=== PATIENT | female | born 1940 | race Caucasian/White ===

== ENCOUNTER 2022-07-13 13:00 | Emergency (ER) | payer MEDICARE, OTHER ==
[~2022-07-13] VITALS: Ht 157.4 cm; Wt 72.6 kg
[2022-07-13] MEDS ORDERED: KENALOG 0.1%80 GM T (14:56)
== END 2022-07-13 15:01 | disposition home or self-care (01) ==
LOC: ED 13:00
DX: L25.9 Unspecified contact dermatitis, unspecified cause (principal); Z88.2 Allergy status to sulfonamides

== ENCOUNTER → 2024-02-24 | Outpatient (CLI) | payer MEDICARE, OTHER ==
[~2024-02-24] MED LIST: AMLODIPINE BESYL5 MG PO; ASPIR-TRIN325 MG PO; CRANBERRY250 MG PO; Ipratropium Brom3 ML NEB; KENALOG 0.1%80 GM T; KRILL OIL500 MG PO; LOSARTAN-HCTZ1 EAC1 PO; METFORMIN HYDR500 MG PO; MUCINEX1200 M1 PO; PREDNISONE10 MG PO; PRESERVISION A1 EAC8 PO; TOPROL XL100 MG PO; VIBRAMYCIN100 MG PO; VITAMIN D-40010 MCG GT
[2024-02-24 09:22] LABS: HEMATOCRIT 45.4 % (37.0-47.0); MEAN CELL VOLUME 92.7 fl (81.0-99.0); MEAN CORPUSCULAR HGB 31.6 pg (27.0-31.0); MEAN CORPUSCULAR HGB CONC 34.1 g/dl (33.0-37.0); MEAN PLATELET VOLUME 9.8 fl (9.6-12.3); PLATELET COUNT AUTOMATED 318 10*3/uL (130-400); WHITE BLOOD COUNT 13.2 10*3/uL (4.8-10.8)
[2024-02-24 09:26] LABS: MANUAL DIFF REFLEX YES
[2024-02-24 09:45] LABS: ALKALINE PHOSPHATASE 151 U/L (46-116); BUN 19 mg/dl (9-23); CHLORIDE 98 mmol/L (98-107); GAMMA GLUTAMYL TRANSPEPTIDASE 30 U/L (0-73); POTASSIUM 3.8 mmol/L (3.4-5.1); SGPT/ALT 17 U/L (5-49); TOTAL PROTEIN 7.4 gm/dL (6.0-8.0)
[2024-02-24 10:20] LABS: ATYPICAL LYMPHS 11 % (0-0); PLATELET SUFFICIENCY NORMAL (NORMAL); TOTAL CELLS COUNTED 100 #CELLS
[2024-02-25 17:06] LABS: A/G RATIO 1.2 (0.7-1.7); ALBUMIN 3.9 g/dL (2.9-4.4); ALPHA-1-GLOBULIN 0.2 g/dL (0.0-0.4); BETA GLOBULIN 1.1 g/dL (0.7-1.3); GAMMA GLOBULIN 0.9 g/dL (0.4-1.8); GLOBULIN, TOTAL 3.2 g/dL (2.2-3.9)
== END | disposition home or self-care (01) ==
LOC: LAB 09:00
PROVIDERS: Student in an Organized Health Care Education/Training Program; ATTEND Family Medicine
DX: E83.52 Hypercalcemia (principal); I10 Essential (primary) hypertension; E11.65 Type 2 diabetes mellitus with hyperglycemia; R74.8 Abnormal levels of other serum enzymes

== ENCOUNTER 2024-03-13 14:02 | Inpatient (IN) | payer MEDICARE, OTHER ==
[~2024-03-13] VITALS: Ht 157.4 cm; Wt 70.4 kg
[2024-03-13 14:04] VITALS: BP 113/52
[2024-03-13] MEDS ORDERED: Ondansetron Hydrochloride 4 MG/2 ML VIAL IV ONE (14:20)
[2024-03-13] MEDS ORDERED: SODIUM CHLORIDE 0.9% 1,000 ML IV ONE ×3 (14:20→21:40)
[2024-03-13 14:47] LABS: VENOUS BLOOD GAS O2 SAT 94.6 % (60.0-85.0)
[2024-03-13 14:48] LABS: BASO % 0.2 % (0.0-1.0); EOS # 0.3 10*3/uL (0.0-0.4); EOS % 1.9 % (1.0-4.0); HEMATOCRIT 46.3 % (37.0-47.0); MEAN CELL VOLUME 94.3 fl (81.0-99.0); MEAN CORPUSCULAR HGB 32.2 pg (27.0-31.0); MEAN CORPUSCULAR HGB CONC 34.1 g/dl (33.0-37.0); MEAN PLATELET VOLUME 9.9 fl (9.6-12.3); MONO # 0.8 10*3/uL (0.1-1.0); NEUT # 13.6 10*3/uL (2.3-7.9); NEUT % 82.5 % (47.0-73.0); PLATELET COUNT AUTOMATED 267 10*3/uL (130-400); RED BLOOD COUNT 4.91 10*6/uL (4.10-5.10); RED CELL DISTRI WIDTH 11.9 % (0-14.5); WHITE BLOOD COUNT 16.5 10*3/uL (4.8-10.8)
[2024-03-13 15:08] LABS: ALKALINE PHOSPHATASE 140 U/L (46-116); BUN 19 mg/dl (9-23); CHLORIDE 101 mmol/L (98-107); POTASSIUM 4.7 mmol/L (3.4-5.1); SGPT/ALT 18 U/L (5-49); TOTAL PROTEIN 7.4 gm/dL (6.0-8.0)
[2024-03-13] MEDS ORDERED: IOHEXOL 300 MG/ML 100 ML VIAL IV ONE (15:30)
[2024-03-13] MEDS ORDERED: Ketorolac Tromethamine 30 MG/ML VIAL IV ONE (16:00)
[2024-03-13 16:10] LABS: BILIRUBIN 1+ (Negative); BLOOD Negative (Negative); CLARITY Turbid (Clear); COLOR Dark Yellow (Yellow); GLUCOSE Negative (Negative); KETONE 1+ (Negative); LEUKO ESTERASE 1+ (Negative); NITRITE Negative (Negative); SPECIFIC GRAVITY >= 1.030 (1.001-1.030)
[2024-03-13 16:22] LABS: BACTERIA 1+; WBC 21-30 wbc/hpf (0-5)
[2024-03-13] MEDS ORDERED: Ceftriaxone Sodium 1 GM/10 ML SYR IV ONE (16:30)
[2024-03-13] MEDS ORDERED: METRONIDAZOLE 100 ML IV ONE (18:00)
[2024-03-13] MEDS ORDERED: ACETAMINOPHEN 650 MG SUPP R PRN (18:30)
[2024-03-13] MEDS ORDERED: MORPHINE Sulfate 2 MG/ML SYR IV PRN (18:30)
[2024-03-13] MEDS ORDERED: Ondansetron Hydrochloride 4 MG/2 ML VIAL IV PRN (18:30)
[2024-03-13] MEDS ORDERED: MAGNESIUM SULFATE 50 ML IV ONE (20:25)
[2024-03-13 21:10] VITALS: BP 125/66
[2024-03-13] MEDS ORDERED: CIPROFLOXACIN 200 ML IV SCH (22:00)
[2024-03-14] VITALS (7 sets, daily range): BP systolic 114–133; BP diastolic 50–62
[2024-03-14] MEDS ORDERED: CIPROFLOXACIN 200 ML IV SCH
[2024-03-14] MEDS ORDERED: DEXTROSE 10 % IN WATER 250 ML IV PRN (00:50)
[2024-03-14] MEDS ORDERED: METRONIDAZOLE 100 ML IV SCH (02:00)
[2024-03-14 06:17] LABS: ALKALINE PHOSPHATASE 88 U/L (46-116); BUN 22 mg/dl (9-23); CHLORIDE 108 mmol/L (98-107); CHOLESTEROL 148 mg/dL (<200); FREE T4 1.16 ng/dl (0.89-1.76); LDL CHOLESTEROL 75 mg/dL (9-159); SGPT/ALT 14 U/L (5-49); TOTAL PROTEIN 5.5 gm/dL (6.0-8.0); TRIGLYCERIDES 144 mg/dl (<150)
[2024-03-14 06:38] LABS: BASO % 0.3 % (0.0-1.0); EOS # 0.1 10*3/uL (0.0-0.4); EOS % 1.3 % (1.0-4.0); HEMATOCRIT 40.7 % (37.0-47.0); MEAN CELL VOLUME 96.2 fl (81.0-99.0); MEAN CORPUSCULAR HGB 31.9 pg (27.0-31.0); MEAN CORPUSCULAR HGB CONC 33.2 g/dl (33.0-37.0); MONO # 0.5 10*3/uL (0.1-1.0); MONO % 7.1 % (3.0-9.0); NEUT # 5.2 10*3/uL (2.3-7.9); NEUT % 74.8 % (47.0-73.0); PLATELET COUNT AUTOMATED 226 10*3/uL (130-400); RED BLOOD COUNT 4.23 10*6/uL (4.10-5.10); RED CELL DISTRI WIDTH 12.5 % (0-14.5); WHITE BLOOD COUNT 6.9 10*3/uL (4.8-10.8)
[2024-03-14 07:21] LABS: POTASSIUM 3.4 mmol/L (3.4-5.1)
[2024-03-14] MEDS ORDERED: INSULIN LISPRO 1 UNIT/0.01 ML SQ SCH (07:30)
[2024-03-14 07:50] LABS: VITAMIN D, 25-HYDROXY 67.1 ng/mL (30-100)
[2024-03-14] MEDS ORDERED: KRILL OIL 500 MG PO SCH (10:00)
[2024-03-14] MEDS ORDERED: HYDROCHLOROTHIAZIDE 25 MG TAB PO SCH (10:00)
[2024-03-14] MEDS ORDERED: Losartan Potassium 100 MG TABLET PO SCH (10:00)
[2024-03-14] MEDS ORDERED: LOSARTAN PO SCH (10:00)
[2024-03-14] MEDS ORDERED: CRANBERRY 250 MG PO SCH (10:00)
[2024-03-14] MEDS ORDERED: Enoxaparin Sodium 40 MG/0.4 ML SYR SC SCH (10:00)
[2024-03-14] MEDS ORDERED: METOPROLOL SUCCINATE XR 100 MG TAB PO SCH (10:00)
[2024-03-14] MEDS ORDERED: ASPIRIN 325 MG TAB PO SCH (10:00)
[2024-03-14] MEDS ORDERED: HYDROCHLOROTHIAZIDE PO SCH (10:00)
[2024-03-14] MEDS ORDERED: amLODIPine besylate 5 MG TAB PO SCH (10:00)
[2024-03-15] VITALS: BP 146/70
[2024-03-15 06:54] LABS: CHLORIDE 108 mmol/L (98-107); POTASSIUM 2.9 mmol/L (3.4-5.1)
[2024-03-15 06:57] LABS: BASO % 0.4 % (0.0-1.0); EOS # 0.3 10*3/uL (0.0-0.4); EOS % 5.4 % (1.0-4.0); HEMATOCRIT 39.1 % (37.0-47.0); MEAN CELL VOLUME 94.2 fl (81.0-99.0); MEAN CORPUSCULAR HGB 31.8 pg (27.0-31.0); MEAN CORPUSCULAR HGB CONC 33.8 g/dl (33.0-37.0); MEAN PLATELET VOLUME 9.6 fl (9.6-12.3); MONO # 0.7 10*3/uL (0.1-1.0); MONO % 14.3 % (3.0-9.0); NEUT # 1.9 10*3/uL (2.3-7.9); NEUT % 37.4 % (47.0-73.0); PLATELET COUNT AUTOMATED 218 10*3/uL (130-400); RED BLOOD COUNT 4.15 10*6/uL (4.10-5.10); RED CELL DISTRI WIDTH 12.7 % (0-14.5)
[2024-03-15 07:58] LABS: BUN 11 mg/dl (9-23)
[2024-03-15 08:00] VITALS: BP 130/56
[2024-03-15] MEDS ORDERED: POTASSIUM CHLORIDE 20 MEQ TAB PO ONE (09:20)
[2024-03-15] MEDS ORDERED: AMOX-CLAV 875-1 EACH PO (11:00)
[2024-03-15] MEDS ORDERED: POTASSIUM CHLORIDE 20 MEQ TAB PO SCH (12:00)
== END 2024-03-15 11:55 | disposition home or self-care (01) | DRG 872 ==
LOC: ED 14:02 → EDHOLD 18:00 → 4E 03-14 16:28
PROVIDERS: Nurse Practitioner; Student in an Organized Health Care Education/Training Program; ADMIT Family Medicine; ATTEND Family Medicine
DX: A41.9 Sepsis, unspecified organism (principal); K57.32 Diverticulitis of large intestine without perforation or abscess without bleeding; K56.7 Ileus, unspecified; N39.0 Urinary tract infection, site not specified; I10 Essential (primary) hypertension; E83.42 Hypomagnesemia; E11.65 Type 2 diabetes mellitus with hyperglycemia; R74.8 Abnormal levels of other serum enzymes; R65.20 Severe sepsis without septic shock; Z86.73 Personal history of transient ischemic attack (TIA), and cerebral infarction without residual deficits; Z88.2 Allergy status to sulfonamides; Z79.899 Other long term (current) drug therapy; Z90.49 Acquired absence of other specified parts of digestive tract; Z90.710 Acquired absence of both cervix and uterus; Z98.42 Cataract extraction status, left eye; Z98.41 Cataract extraction status, right eye

== ENCOUNTER → 2024-03-23 | Outpatient (CLI) | payer MEDICARE, OTHER ==
[~2024-03-23] MED LIST changes: +AMOX-CLAV 875-1 EACH PO
[2024-03-23 14:16] LABS: POTASSIUM 3.8 mmol/L (3.4-5.1)
== END | disposition home or self-care (01) ==
LOC: LAB 13:38
PROVIDERS: Student in an Organized Health Care Education/Training Program; ATTEND Family Medicine
DX: R19.7 Diarrhea, unspecified (principal)

== ENCOUNTER 2024-05-08 09:01 | Emergency (ER) | payer MEDICARE, OTHER ==
[2024-05-08] MEDS ORDERED: Ondansetron Hydrochloride 4 MG/2 ML VIAL IV ONE (09:05)
[2024-05-08] MEDS ORDERED: METFORMIN850 MG PO (09:14)
[2024-05-08] MEDS ORDERED: NORVASC10 MG PO (09:16)
[2024-05-08 09:32] LABS: BASO % 0.4 % (0.0-1.0); EOS # 0.3 10*3/uL (0.0-0.4); EOS % 3.6 % (1.0-4.0); HEMATOCRIT 41.5 % (37.0-47.0); MEAN CELL VOLUME 95.4 fl (81.0-99.0); MEAN CORPUSCULAR HGB CONC 33.5 g/dl (33.0-37.0); MEAN PLATELET VOLUME 9.5 fl (9.6-12.3); MONO # 0.7 10*3/uL (0.1-1.0); MONO % 7.4 % (3.0-9.0); NEUT # 3.9 10*3/uL (2.3-7.9); NEUT % 42.6 % (47.0-73.0); PLATELET COUNT AUTOMATED 290 10*3/uL (130-400); RED BLOOD COUNT 4.35 10*6/uL (4.10-5.10); RED CELL DISTRI WIDTH 12.2 % (0-14.5); WHITE BLOOD COUNT 9.1 10*3/uL (4.8-10.8)
[2024-05-08 09:44] LABS: ACT PARTIAL THROMBO TIME 20.6 SECONDS (20.0-32.1)
[2024-05-08 09:55] LABS: ALKALINE PHOSPHATASE 133 U/L (46-116); BUN 21 mg/dl (9-23); CHLORIDE 101 mmol/L (98-107); LIPASE 58 U/L (12-53); POTASSIUM 3.3 mmol/L (3.4-5.1); SGPT/ALT 11 U/L (5-49); TOTAL PROTEIN 6.8 gm/dL (6.0-8.0)
[2024-05-08] MEDS ORDERED: SODIUM CHLORIDE 0.9% 1,000 ML IV ONE (09:55)
[2024-05-08] MEDS ORDERED: POTASSIUM CHLORIDE 20 MEQ TAB PO ONE (10:10)
[2024-05-08 11:24] LABS: BILIRUBIN Negative (Negative); BLOOD Trace-Lysed (Negative); CLARITY Clear (Clear); COLOR Yellow (Yellow); GLUCOSE Negative (Negative); KETONE Negative (Negative); LEUKO ESTERASE 2+ (Negative); NITRITE Negative (Negative); PH 5.5 (4.5-8.0); SPECIFIC GRAVITY <= 1.005 (1.001-1.030); UROBILINOGEN 0.2 E.U./dl (0.0-1.0)
[2024-05-08 11:36] LABS: BACTERIA 1+; EPITHELIAL CELLS 0-2; RBC 0-2 rbc/hpf (0-2)
[2024-05-08] MEDS ORDERED: Pantoprazole Sodium 40 MG TAB PO ONE (11:50)
[2024-05-08] MEDS ORDERED: SUCRALFATE 1 GM TAB PO ONE (11:50)
[2024-05-08] MEDS ORDERED: PROTONIX40 MG PO (12:53)
[2024-05-08] MEDS ORDERED: CARAFATE1 G1 PO (12:53)
== END 2024-05-08 13:32 | disposition home or self-care (01) ==
LOC: ED 09:01
PROVIDERS: Internal Medicine
DX: K29.70 Gastritis, unspecified, without bleeding (principal); K52.9 Noninfective gastroenteritis and colitis, unspecified; Z88.2 Allergy status to sulfonamides; Z79.84 Long term (current) use of oral hypoglycemic drugs; Z79.899 Other long term (current) drug therapy; Z79.82 Long term (current) use of aspirin; Z90.49 Acquired absence of other specified parts of digestive tract; Z90.710 Acquired absence of both cervix and uterus; Z98.890 Other specified postprocedural states

== ENCOUNTER 2024-09-05 16:36 | Emergency (ER) | payer MEDICARE, OTHER ==
[~2024-09-05] VITALS: Ht 157.4 cm
[~2024-09-05 16:36] MED LIST changes: +CARAFATE1 G1 PO; +METFORMIN850 MG PO; +NORVASC10 MG PO; +PROTONIX40 MG PO
== END 2024-09-05 19:08 | disposition home or self-care (01) ==
LOC: ED 16:36
DX: S60.222A Contusion of left hand, initial encounter (principal); S70.01XA Contusion of right hip, initial encounter; Z79.82 Long term (current) use of aspirin; Z79.899 Other long term (current) drug therapy; Z88.2 Allergy status to sulfonamides; Z90.49 Acquired absence of other specified parts of digestive tract; Z90.710 Acquired absence of both cervix and uterus; Z98.890 Other specified postprocedural states; W18.39XA Other fall on same level, initial encounter; Y93.89 Activity, other specified; Y92.89 Other specified places as the place of occurrence of the external cause; Y99.8 Other external cause status